=== PATIENT | male | born 1930 | race Two or more races ===

== ENCOUNTER → 2016-11-15 | Outpatient (CLI) | payer MEDICARE ==
[~2016-11-15] MED LIST: ACET-48 PO; ALBU8HFA IH; ASPI-556 PO; CETI-260 PO; COLC0.6T69 PO; DOCU250C91 PO; EPLE25TA10 PO; FERR-89 PO; FLUT16H NASAL; FLUT1BLS PO; FURO20 PO; FURO40 PO; GABA-531 PO; HYDR-308 PO; IPRA6S NASAL; LACT30L PO; LEVO200 PO; METH1ADH6 TP; MONT10TA21 PO; NALO12.5 PO; OMEP20 PO; ONDA4 PO; RANI150T7 PO; SENN-30 PO; TRAM50TA4 PO; VITAD1000 PO; ZOLP5 PO
[2016-11-15 12:57] VITALS: BP 132/61
== END | disposition home or self-care (01) ==
LOC: SRCNTR 12:16
PROVIDERS: ATTEND Internal Medicine
DX: J44.9 Chronic obstructive pulmonary disease, unspecified (principal); G47.33 Obstructive sleep apnea (adult) (pediatric); I10 Essential (primary) hypertension; J90 Pleural effusion, not elsewhere classified; E66.9 Obesity, unspecified; J43.9 Emphysema, unspecified
CPT/HCPCS: G0463

== ENCOUNTER → 2017-02-14 | Outpatient (CLI) | payer MEDICARE ==
[~2017-02-14] VITALS: Ht 180.3 cm; Wt 141.5 kg
[2017-02-14 12:27] VITALS: BP 136/64
== END | disposition home or self-care (01) ==
LOC: SRCNTR 11:54
PROVIDERS: ATTEND Internal Medicine
DX: J43.9 Emphysema, unspecified (principal); G47.33 Obstructive sleep apnea (adult) (pediatric); E66.9 Obesity, unspecified; I10 Essential (primary) hypertension; J90 Pleural effusion, not elsewhere classified
CPT/HCPCS: G0463

== ENCOUNTER → 2017-07-04 | Outpatient (CLI) | payer MEDICARE ==
[~2017-07-04] MED LIST changes: -CETI-260 PO; +CETI-290 PO; +COLC0.6T67 PO; -COLC0.6T69 PO; -FURO40 PO; +SENN-175 PO; -SENN-30 PO
[2017-07-04 12:39] VITALS: BP 157/83
== END | disposition home or self-care (01) ==
LOC: SRCNTR 12:02
PROVIDERS: ATTEND Internal Medicine
DX: J43.9 Emphysema, unspecified (principal); E66.9 Obesity, unspecified; G47.33 Obstructive sleep apnea (adult) (pediatric); I10 Essential (primary) hypertension; J90 Pleural effusion, not elsewhere classified; L03.116 Cellulitis of left lower limb; Z79.82 Long term (current) use of aspirin; Z96.0 Presence of urogenital implants
CPT/HCPCS: G0463

== ENCOUNTER → 2017-10-03 | Outpatient (CLI) | payer MEDICARE ==
[2017-10-03 14:51] VITALS: BP 148/79
== END | disposition home or self-care (01) ==
LOC: SRCNTR 13:09
PROVIDERS: ATTEND Internal Medicine
DX: G47.33 Obstructive sleep apnea (adult) (pediatric) (principal); J43.9 Emphysema, unspecified; E66.9 Obesity, unspecified; I10 Essential (primary) hypertension; J90 Pleural effusion, not elsewhere classified; Z96.0 Presence of urogenital implants; Z79.82 Long term (current) use of aspirin
CPT/HCPCS: G0463

== ENCOUNTER → 2018-01-09 | Outpatient (CLI) | payer MEDICARE ==
[2018-01-09 14:23] VITALS: BP 96/55
== END | disposition home or self-care (01) ==
LOC: SRCNTR 13:04
PROVIDERS: ATTEND Internal Medicine
DX: J43.9 Emphysema, unspecified (principal); G47.33 Obstructive sleep apnea (adult) (pediatric); I10 Essential (primary) hypertension; J90 Pleural effusion, not elsewhere classified; E66.9 Obesity, unspecified; Z79.82 Long term (current) use of aspirin
CPT/HCPCS: G0463